=== PATIENT | female | born 1950 | race Caucasian/White ===

== ENCOUNTER → 2017-11-23 | Outpatient (CLI) | payer BC ==
[~2017-11-23] MED LIST: CARDIZEM CD,CA120 MG PO; CELEXA40 MG PO; COZAAR100 MG PO; Cozaar PO; Diabeta,Micronase PO; Ecotrin PO; GLUCOPHAGE1000 MG PO; LASIX40 MG PO; NASACORT; NEURONTIN300 MG PO; Norvasc PO; OPANA ER5 MG PO; Proventil,Ventolin H IH; Tricor PO; VALIUM; ZyrTEC PO; [UNRECOGNIZED DRUG - REMARK]; oxyCODONE PO
== END | disposition home or self-care (01) ==
LOC: RAD 13:45
PROC: 3E0R3KZ Introduction of Other Diagnostic Substance into Spinal Canal, Percutaneous Approach (ICD-10-PCS; principal; 2017-11-23)
DX: M43.16 Spondylolisthesis, lumbar region (principal); Z98.1 Arthrodesis status; M54.9 Dorsalgia, unspecified; G89.29 Other chronic pain; M48.02 Spinal stenosis, cervical region; M51.36 Other intervertebral disc degeneration, lumbar region; E66.9 Obesity, unspecified
CPT/HCPCS: 62304; 72110; 72132